=== PATIENT | male | born 1985 | race Caucasian/White ===

== ENCOUNTER 2017-01-23 13:17 | Emergency (ER) | payer SELFPAY ==
[~2017-01-23] VITALS: Ht 162.6 cm; Wt 81.5 kg
[~2017-01-23 13:17] MED LIST: ASPI-12 PO; SODI1TAB66 PO; VICOT PO
[2017-01-23] MEDS ORDERED: METHOCARBAMOL 500 MG TABLET PO ONE (15:00)
[2017-01-23] MEDS ORDERED: KETOROLAC TROMETHAMINE 60 MG/2 ML VIAL IM ONE (15:00)
[2017-01-23 15:36] VITALS: BP 138/89
== END 2017-01-23 15:45 | disposition home or self-care (01) ==
LOC: EMS 13:18
DX: S39.012A Strain of muscle, fascia and tendon of lower back, initial encounter (principal); R03.0 Elevated blood-pressure reading, without diagnosis of hypertension; F17.210 Nicotine dependence, cigarettes, uncomplicated; V49.49XA Driver injured in collision with other motor vehicles in traffic accident, initial encounter; Y93.89 Activity, other specified; Y92.89 Other specified places as the place of occurrence of the external cause; Y99.8 Other external cause status
CPT/HCPCS: 96372; 99283; J1885